=== PATIENT | male | born 1975 | race African-American/Black ===

== ENCOUNTER 2020-12-27 19:26 | Observation (INO) ==
[2020-12-27] MEDS ORDERED: SODIUM CHLORIDE 0.9% 1,000 ML IV STA (20:01)
[2020-12-27 20:08] LABS: Basophils % 0.8 % (0.0-0.8); Eosinophils # 0.9 10*3/uL (0.0-0.87); Eosinophils % 35.2 % (0.00-10.9); Hematocrit 32.4 VOL% (42.0-52.0); Lymphocytes # 0.5 10*3/uL (1.4-4.0); Lymphocytes % 19.4 % (21.2-54.2); Mean Corpuscular Volume 91.3 FL (87-102); Mean Platelet Volume 11.6 FL (9.6-12.0); Neutrophils % 31.6 % (38.7-73.9); Platelet Count 137 T/CUMM (130-400); Red Blood Count 3.55 MC/CUMM (3.8-5.5); Red Cell Distribution Width 12.3 % (9.3-17.3); White Blood Count 2.5 T/CUMM (4-12)
[2020-12-27 20:16] LABS: PT Patient Result 11.4 SECS (10.5-12.0)
[2020-12-27 20:23] LABS: Albumin 3.6 G/DL (3.4-5.0); Bilirubin,Total 0.7 MG/DL (0.20-1.00); Calcium 8.4 MG/DL (8.5-10.1); Potassium 3.8 MMOL/L (3.5-5.1); Total Protein 7.5 G/DL (6.4-8.2)
[2020-12-27 20:33] LABS: Eosinophils 38 % (0-10); Lymphocytes 14 % (20-55); Segmented Neutrophils 41 % (50-85); Total Cells Counted 100
[2020-12-27 20:34] LABS: Atypical Lymphocytes Few; Elliptocytes 1+; Platelet Estimate Adequate; Poikilocytosis 1+; Schistocytes 1+
[2020-12-27 20:36] LABS: Blood, Urine Negative (Negative); Glucose,Urine (UA) Negative (Negative); Ketones,Urine 5 mg/dL (Negative); Mucus,Urine Moderate /LPF (Occasional); Nitrite,Urine Negative (Negative); Protein,Urine Negative; RBC,Urine 1 /HPF (0-4); Squamous Epithelial Cell,Urine Occasional /HPF (0-10); Urine Appearance CLEAR (Clear); Urine Color Yellow (Yellow); Urine Specific Gravity 1.028 (1.001-1.035)
[2020-12-27 20:37] LABS: Barbiturates Screen,Urine Negative (Negative); Benzodiazepines Screen,Urine Negative (Negative); Bilirubin,Urine Small mg/dL (Negative); Cannabinoid Screen,Urine Negative (Negative); Opiate Screen,Urine Negative (Negative); Phencyclidine Screen,Urine Negative (Negative)
[2020-12-27] MEDS ORDERED: ASPIRIN 325 MG TABLET PO STA (21:12)
[2020-12-27] MEDS ORDERED: ZALEPLON 5 MG CAPSULE PO PRN (22:37)
[2020-12-27] MEDS ORDERED: ACETAMINOPHEN 325 MG TABLET PO PRN (22:37)
[2020-12-27] MEDS ORDERED: hydrALAZINE 20 MG/1 ML VIAL IV PRN (22:37)
[2020-12-27] MEDS ORDERED: GLUCAGON 1 MG VIAL IM PRN (22:37)
[2020-12-27] MEDS ORDERED: DEXTROSE 50% 25 GM/50 ML VIAL IV PRN (22:37)
[2020-12-27] MEDS ORDERED: NICOTINE 21 MG/24 HR PATCH TRANSDERM PRN (22:37)
[2020-12-27] MEDS ORDERED: guaiFENesin/DM ER 600-30 MG TABLET PO PRN (22:37)
[2020-12-27] MEDS ORDERED: ONDANSETRON 4 MG/2 ML VIAL IV PRN (22:37)
[2020-12-27] MEDS ORDERED: diphenhydrAMINE CAP 25 MG CAPSULE PO PRN (22:37)
[2020-12-27] MEDS ORDERED: SODIUM CHLORIDE 0.9% 1,000 ML IV SCH (23:00)
[2020-12-28 05:40] LABS: Basophils % 1.5 % (0.0-0.8); Eosinophils # 0.7 10*3/uL (0.0-0.87); Eosinophils % 35.4 % (0.00-10.9); Hematocrit 27.2 VOL% (42.0-52.0); Hemoglobin 9.2 GM/DL (14.0-18.0); Lymphocytes # 0.4 10*3/uL (1.4-4.0); Lymphocytes % 20.7 % (21.2-54.2); Mean Corpuscular HGB Conc 33.8 GM/DL (32-36); Mean Corpuscular Volume 91.9 FL (87-102); Mean Platelet Volume 11.3 FL (9.6-12.0); Monocytes % 12.6 % (1.7-12.7); Neutrophils % 29.8 % (38.7-73.9); Platelet Count 108 T/CUMM (130-400); Red Blood Count 2.96 MC/CUMM (3.8-5.5); Red Cell Distribution Width 12.3 % (9.3-17.3)
[2020-12-28 06:00] LABS: Calcium 6.8 MG/DL (8.5-10.1); Osmolality,Calculated 284.7 MOS/KG (273-304); Potassium 2.9 MMOL/L (3.5-5.1)
[2020-12-28 06:52] LABS: Lymphocytes 18 % (20-55); Segmented Neutrophils 40 % (50-85)
[2020-12-28 06:53] LABS: Eosinophils 27 % (0-10); Platelet Estimate Normal; Total Cells Counted 100
[2020-12-28 06:54] LABS: Hypochromasia Slight
[2020-12-28] MEDS ORDERED: ENOXAPARIN 40 MG/0.4 ML SYRINGE SUBCUT SCH (09:00)
[2020-12-28] MEDS: BISACODYL 5 MG TABLET PO SCH (09:24)
[2020-12-28] MEDS: PANTOPRAZOLE 40 MG TABLET PO SCH (09:25)
[2020-12-28] MEDS ORDERED: POTASSIUM CHLORIDE 20 MEQ TABLET PO ONE ×2 (10:26→11:26)
[2020-12-28] MEDS: ELVITEGRAVIR PO SCH (20:59)
[2020-12-28] MEDS: COBICISTAT PO SCH (20:59)
[2020-12-28] MEDS: TENOFOVIR ALAFENAMIDE PO SCH (20:59)
[2020-12-28] MEDS: EMTRICITABINE PO SCH (20:59)
[2020-12-29 05:49] LABS: Basophils % 0.7 % (0.0-0.8); Eosinophils # 0.9 10*3/uL (0.0-0.87); Eosinophils % 29.4 % (0.00-10.9); Hematocrit 34.1 VOL% (42.0-52.0); Lymphocytes # 0.6 10*3/uL (1.4-4.0); Lymphocytes % 18.4 % (21.2-54.2); Mean Corpuscular HGB Conc 33.4 GM/DL (32-36); Mean Corpuscular Volume 92.4 FL (87-102); Mean Platelet Volume 11.7 FL (9.6-12.0); Monocytes % 13.7 % (1.7-12.7); Neutrophils % 37.8 % (38.7-73.9); Platelet Count 120 T/CUMM (130-400); Red Cell Distribution Width 12.6 % (9.3-17.3)
[2020-12-29 05:55] LABS: Hemoglobin 11.4 GM/DL (14.0-18.0); Red Blood Count 3.69 MC/CUMM (3.8-5.5)
[2020-12-29 06:00] LABS: Calcium 8.5 MG/DL (8.5-10.1); Eosinophils 32 % (0-10); Hypochromasia 1+; Lymphocytes 11 % (20-55); Microcytosis 1+; Ovalocytes Few; Potassium 3.6 MMOL/L (3.5-5.1); Segmented Neutrophils 46 % (50-85); Total Cells Counted 100
[2020-12-29 06:01] LABS: Platelet Estimate Adequate
[2020-12-29 06:09] LABS: Osmolality,Calculated 266.1 MOS/KG (273-304)
[2020-12-29] MEDS ORDERED: POTASSIUM CHLORIDE 20 MEQ TABLET PO ONE (09:39)
[2020-12-29] MEDS: BISACODYL 5 MG TABLET PO SCH (11:27)
[2020-12-29] MEDS: PANTOPRAZOLE 40 MG TABLET PO SCH (11:27)
[2020-12-29] MEDS: SACUBITRIL/VALSARTAN 49-51 MG TABLET PO SCH (21:25)
[2020-12-29] MEDS: COBICISTAT PO SCH (21:26)
[2020-12-29] MEDS: EMTRICITABINE PO SCH (21:26)
[2020-12-29] MEDS: ELVITEGRAVIR PO SCH (21:26)
[2020-12-29] MEDS: TENOFOVIR ALAFENAMIDE PO SCH (21:26)
[2020-12-30 05:38] LABS: Basophils % 0.8 % (0.0-0.8); Eosinophils % 42.1 % (0.00-10.9); Hematocrit 38.2 VOL% (42.0-52.0); Hemoglobin 12.8 GM/DL (14.0-18.0); Immature Granulocytes % 0.4 %; Immature Granulocytes Absolute 0.01 #; Lymphocytes # 0.4 10*3/uL (1.4-4.0); Lymphocytes % 18.2 % (21.2-54.2); Mean Corpuscular HGB Conc 33.5 GM/DL (32-36); Mean Corpuscular Volume 90.3 FL (87-102); Mean Platelet Volume 11.2 FL (9.6-12.0); Monocytes % 11.2 % (1.7-12.7); Neutrophils % 27.3 % (38.7-73.9); Platelet Count 148 T/CUMM (130-400); Red Blood Count 4.23 MC/CUMM (3.8-5.5); Red Cell Distribution Width 12.3 % (9.3-17.3); White Blood Count 2.4 T/CUMM (4-12)
[2020-12-30 06:03] LABS: Risk Ratio 5.31; VLDL Cholesterol 17.4 MG/DL
[2020-12-30 06:04] LABS: Eosinophils 35 % (0-10); Hypochromasia Slight; Lymphocytes 20 % (20-55); Microcytosis Slight; Platelet Estimate Adequate; Segmented Neutrophils 34 % (50-85); Total Cells Counted 100
[2020-12-30 06:10] LABS: Osmolality,Calculated 270.8 MOS/KG (273-304); Potassium 3.6 MMOL/L (3.5-5.1); Thyroid Stimulating Hormone 3.48 uIU/ml (0.358-3.74)
[2020-12-30] MEDS: SACUBITRIL/VALSARTAN 49-51 MG TABLET PO SCH ×2 (08:47→22:08)
[2020-12-30] MEDS: BISACODYL 5 MG TABLET PO SCH (08:48)
[2020-12-30] MEDS: POTASSIUM CHLORIDE 20 MEQ TABLET PO PRN ×2 (08:48→08:50)
[2020-12-30] MEDS: PANTOPRAZOLE 40 MG TABLET PO SCH (08:49)
[2020-12-30] MEDS ORDERED: POTASSIUM CHLORIDE RIDER 10 MEQ/100 ML PREMIX IV PRN (11:25)
[2020-12-30] MEDS ORDERED: MAGNESIUM SULF RIDER 2 GM/50 ML PREMIX IV PRN (11:25)
[2020-12-30] MEDS: TENOFOVIR ALAFENAMIDE PO SCH (22:08)
[2020-12-30] MEDS: ELVITEGRAVIR PO SCH (22:08)
[2020-12-30] MEDS: EMTRICITABINE PO SCH (22:08)
[2020-12-30] MEDS: COBICISTAT PO SCH (22:08)
[2020-12-31] MEDS ORDERED: diphenhydrAMINE CAP 50 MG CAPSULE PO ONE (06:30)
[2020-12-31] MEDS ORDERED: DIAZEPAM 5 MG TABLET PO ONE (06:30)
[2020-12-31] MEDS ORDERED: HEPARIN/NACL 0.9% 2 UNITS/ML 2,000 UNIT/1,000 ML BAG IV ONE (06:36)
[2020-12-31] MEDS ORDERED: LIDOCAINE 1% 20 ML VIAL ONE (06:36)
[2020-12-31 07:09] LABS: Eosinophils # 1.2 10*3/uL (0.0-0.87); Eosinophils % 36.8 % (0.00-10.9); Immature Granulocytes % 0.3 %; Immature Granulocytes Absolute 0.01 #; Lymphocytes # 0.8 10*3/uL (1.4-4.0); Lymphocytes % 25.1 % (21.2-54.2); Mean Corpuscular HGB Conc 33.6 GM/DL (32-36); Mean Corpuscular Volume 91.7 FL (87-102); Mean Platelet Volume 11.7 FL (9.6-12.0); Monocytes % 10.2 % (1.7-12.7); Neutrophils % 26.6 % (38.7-73.9); Red Cell Distribution Width 12.4 % (9.3-17.3)
[2020-12-31] MEDS ORDERED: fentaNYL 100 MCG/2 ML VIAL ONE (07:18)
[2020-12-31] MEDS ORDERED: MIDAZOLAM 2 MG/2 ML VIAL ONE (07:18)
[2020-12-31 07:23] LABS: Hemoglobin 14.8 GM/DL (14.0-18.0); Platelet Count 188 T/CUMM (130-400); White Blood Count 3.2 T/CUMM (4-12)
[2020-12-31 07:36] LABS: Eosinophils 34 % (0-10); Lymphocytes 27 % (20-55); Microcytosis Slight; Ovalocytes Slight; Platelet Estimate Adequate; Segmented Neutrophils 31 % (50-85); Total Cells Counted 100
[2020-12-31 07:47] LABS: Bilirubin,Total 0.8 MG/DL (0.20-1.00); Calcium 8.9 MG/DL (8.5-10.1); Osmolality,Calculated 276.5 MOS/KG (273-304); Potassium 3.7 MMOL/L (3.5-5.1); Total Protein 9.1 G/DL (6.4-8.2)
[2020-12-31] MEDS ORDERED: MORPHINE 2 MG/1 ML SYRINGE IV PRN (08:25)
[2020-12-31] MEDS ORDERED: NITROGLYCERIN SL 0.4 MG TABLET SL PRN (08:25)
[2020-12-31] MEDS ORDERED: ASPIRIN EC 81 MG TABLET PO SCH (09:00)
[2020-12-31 12:54] VITALS: BP 91/65
[2020-12-31 15:17] LABS: % CD4 (T Cells) 1 % (32-64); % CD8 (T Cells) 71 % (13-40); 4/8 Ratio 0 (>=0.9)
== END 2020-12-31 16:24 | disposition home or self-care (01) ==
LOC: EDBD → EDUNIT# → N.EDINP 19:26 → N.ED 19:26 → N.4E 23:36 → N.TELEN 12-30 16:23
PROVIDERS: ADMIT Internal Medicine; ATTEND Internal Medicine
PROC: CLCCHCL (ICD-10-PCS; 2020-12-31 07:45)

== ENCOUNTER 2022-01-17 14:19 | Inpatient (IN) ==
[2022-01-17 16:14] LABS: Hematocrit 31.3 VOL% (42.0-52.0); Immature Granulocytes % 1.1 %; Immature Granulocytes Absolute 0.01 #; Lymphocytes # 0.2 10*3/uL (1.4-4.0); Lymphocytes % 23.2 % (21.2-54.2); Mean Corpuscular HGB Conc 35.1 GM/DL (32-36); Mean Corpuscular Volume 84.8 FL (87-102); Monocytes # 0.1 10*3/uL (0.11-0.8); Monocytes % 8.4 % (1.7-12.7); Neutrophils % 67.3 % (38.7-73.9); Platelet Count 71 T/CUMM (130-400); Red Blood Count 3.69 MC/CUMM (3.8-5.5); Red Cell Distribution Width 12.3 % (9.3-17.3)
[2022-01-17 16:38] LABS: Mucus,Urine Moderate /LPF (Occasional); RBC,Urine 1 /HPF (0-4); Urine Appearance Clear (Clear); Urine Color Yellow (Yellow); Urine pH 5.5 (4.5-8.0)
[2022-01-17 16:39] LABS: Bilirubin,Urine Small mg/dL (Negative); Blood, Urine Trace mg/dL (Negative); Glucose,Urine (UA) Negative (Negative); Ketones,Urine 40 mg/dL (Negative); Nitrite,Urine Negative (Negative); Protein,Urine 100 mg/dL (Negative); Urine Specific Gravity >= 1.030 (1.001-1.035); Urine Urobilinogen 0.2 eU/dL (<2.0)
[2022-01-17 17:09] LABS: Albumin 3.5 G/DL (3.4-5.0); Bilirubin,Total 1.2 MG/DL (0.20-1.00); Calcium 9.2 MG/DL (8.5-10.1); Osmolality,Calculated 248.8 MOS/KG (273-304); Potassium 4.2 MMOL/L (3.5-5.1); Total Protein 9.3 G/DL (6.4-8.2)
[2022-01-17] MEDS ORDERED: DOCUSATE SODIUM 100 MG CAPSULE PO PRN (17:31)
[2022-01-17] MEDS ORDERED: ONDANSETRON 4 MG/2 ML VIAL IV PRN (17:31)
[2022-01-17] MEDS ORDERED: GLUCAGON 1 MG VIAL IM PRN (17:31)
[2022-01-17] MEDS ORDERED: DEXTROSE 10% 250 ML BAG IV PRN (17:45)
[2022-01-17] MEDS: SODIUM CHLORIDE 0.9% 1,000 ML IV SCH (18:12)
[2022-01-17 19:10] LABS: Elliptocytes 1+; Lymphocytes 14 % (20-55); Total Cells Counted 100
[2022-01-17 19:11] LABS: Burr Cells Few; Platelet Estimate Decreased
[2022-01-18] MEDS: ACETAMINOPHEN 325 MG TABLET PO PRN ×3 (00:36→21:08)
[2022-01-18 01:54] LABS: Hematocrit 27.9 VOL% (42.0-52.0); Hemoglobin 9.6 GM/DL (14.0-18.0); Immature Granulocytes % 1.2 %; Immature Granulocytes Absolute 0.01 #; Lymphocytes # 0.2 10*3/uL (1.4-4.0); Lymphocytes % 25.6 % (21.2-54.2); Mean Corpuscular HGB Conc 34.4 GM/DL (32-36); Mean Corpuscular Volume 86.1 FL (87-102); Mean Platelet Volume 13.4 FL (9.6-12.0); Monocytes # 0.1 10*3/uL (0.11-0.8); Monocytes % 8.1 % (1.7-12.7); Neutrophils % 65.1 % (38.7-73.9); Platelet Count 60 T/CUMM (130-400); Red Blood Count 3.24 MC/CUMM (3.8-5.5); Red Cell Distribution Width 12.2 % (9.3-17.3)
[2022-01-18 01:56] LABS: Hematocrit 27.5 VOL% (42.0-52.0); Hemoglobin 9.7 GM/DL (14.0-18.0); Immature Granulocytes % 1.1 %; Immature Granulocytes Absolute 0.01 #; Lymphocytes # 0.2 10*3/uL (1.4-4.0); Lymphocytes % 23.1 % (21.2-54.2); Mean Corpuscular HGB Conc 35.3 GM/DL (32-36); Mean Corpuscular Volume 85.4 FL (87-102); Monocytes # 0.1 10*3/uL (0.11-0.8); Monocytes % 9.9 % (1.7-12.7); Neutrophils % 65.9 % (38.7-73.9); Platelet Count 60 T/CUMM (130-400); Red Blood Count 3.22 MC/CUMM (3.8-5.5); Red Cell Distribution Width 12.1 % (9.3-17.3)
[2022-01-18 02:00] LABS: INR 1.1; PT Patient Result 12.2 SECS (10.1-12.1); Partial Thromboplastin Time 35.6 SECS (23.7-32.9)
[2022-01-18 02:04] LABS: White Blood Count 0.9 T/CUMM (4-12)
[2022-01-18 02:05] LABS: White Blood Count 0.9 T/CUMM (4-12)
[2022-01-18 02:12] LABS: Calcium 8.4 MG/DL (8.5-10.1); Osmolality,Calculated 247.8 MOS/KG (273-304)
[2022-01-18 02:19] LABS: % Iron Saturation 9.2 % (18-50); Ferritin 3029.9 ng/mL (26-388)
[2022-01-18 02:26] LABS: Folate 19.85 NG/ML (5.38-24.0); Vitamin B12 339 PG/ML (211-911)
[2022-01-18 02:43] LABS: Elliptocytes 1+; Eosinophils 1 % (0-10); Lymphocytes 26 % (20-55); Platelet Estimate Decreased; Total Cells Counted 100
[2022-01-18 03:10] LABS: Sedimentation Rate-Westergren 109 MM/HR (0-15)
[2022-01-18] MEDS: MEROPENEM 500 MG in SODIUM CHLORIDE 0.9% 100 ML IV SCH ×4 (03:34→21:08)
[2022-01-18] MEDS: SODIUM CHLORIDE 0.9% 1,000 ML IV SCH ×2 (06:42→23:29)
[2022-01-18 09:41] LABS: Ovalocytes 1+
[2022-01-18 09:42] LABS: Polychromasia Slight; Tear Drop Cells Few
[2022-01-18 09:48] LABS: Lymphocytes 18 % (20-55); Ovalocytes 1+; Polychromasia Slight; Total Cells Counted 100
[2022-01-18 09:49] LABS: Acanthocytes Few; Elliptocytes 1+; Platelet Estimate Decreased; Tear Drop Cells Few
[2022-01-18] MEDS ORDERED: IBUPROFEN 800 MG TABLET PO ONE (23:30)
[2022-01-19] MEDS: MEROPENEM 500 MG in SODIUM CHLORIDE 0.9% 100 ML IV SCH ×4 (04:16→21:19)
[2022-01-19 05:26] LABS: Basophils % 1.1 % (0.0-0.8); Eosinophils % 1.1 % (0.00-10.9); Hematocrit 27.2 VOL% (42.0-52.0); Hemoglobin 9.2 GM/DL (14.0-18.0); Immature Granulocytes % 2.1 %; Immature Granulocytes Absolute 0.02 #; Lymphocytes # 0.4 10*3/uL (1.4-4.0); Lymphocytes % 38.9 % (21.2-54.2); Mean Corpuscular HGB Conc 33.8 GM/DL (32-36); Mean Corpuscular Volume 87.2 FL (87-102); Mean Platelet Volume 12.8 FL (9.6-12.0); Monocytes # 0.2 10*3/uL (0.11-0.8); Monocytes % 18.9 % (1.7-12.7); Neutrophils % 37.9 % (38.7-73.9); Platelet Count 62 T/CUMM (130-400); Red Blood Count 3.12 MC/CUMM (3.8-5.5); Red Cell Distribution Width 12.5 % (9.3-17.3)
[2022-01-19 05:56] LABS: Band Neutrophils 1 % (0-10); Lymphocytes 33 % (20-55); Microcytosis Slight; Nucleated Red Blood Cells 1 /100 WBC (0-5); Total Cells Counted 100
[2022-01-19 05:57] LABS: Ovalocytes 1+
[2022-01-19 05:58] LABS: Burr Cells Slight
[2022-01-19 05:59] LABS: Platelet Estimate Decreased; Tear Drop Cells Slight
[2022-01-19] MEDS ORDERED: IMMUNE GLOBULIN 10% 40 GM in PREMIX 1 EACH IV ONE (09:00)
[2022-01-19] MEDS: SODIUM CHLORIDE 0.9% 1,000 ML IV SCH ×2 (10:10→23:58)
[2022-01-19] MEDS: ACETAMINOPHEN 325 MG TABLET PO PRN (18:40)
[2022-01-20] MEDS: ACETAMINOPHEN 325 MG TABLET PO PRN ×2 (04:05→16:13)
[2022-01-20] MEDS: MEROPENEM 500 MG in SODIUM CHLORIDE 0.9% 100 ML IV SCH ×4 (04:05→21:12)
[2022-01-20 09:35] LABS: Eosinophils % 1.5 % (0.00-10.9); Hemoglobin 8.5 GM/DL (14.0-18.0); Immature Granulocytes % 1.5 %; Immature Granulocytes Absolute 0.01 #; Lymphocytes # 0.2 10*3/uL (1.4-4.0); Lymphocytes % 32.4 % (21.2-54.2); Mean Corpuscular Volume 86.2 FL (87-102); Monocytes # 0.1 10*3/uL (0.11-0.8); Monocytes % 8.8 % (1.7-12.7); Neutrophils % 55.8 % (38.7-73.9); Platelet Count 66 T/CUMM (130-400); Red Cell Distribution Width 12.8 % (9.3-17.3)
[2022-01-20 09:38] LABS: White Blood Count 0.7 T/CUMM (4-12)
[2022-01-20 09:51] LABS: Calcium 8.1 MG/DL (8.5-10.1); Osmolality,Calculated 254.1 MOS/KG (273-304); Potassium 3.7 MMOL/L (3.5-5.1)
[2022-01-20 10:00] LABS: Band Neutrophils 1 % (0-10); Eosinophils 4 % (0-10); Hypochromia 1+; Lymphocytes 31 % (20-55); Microcytosis 1+; Ovalocytes Slight; Platelet Estimate Decreased; Total Cells Counted 100
[2022-01-20] MEDS: SODIUM CHLORIDE 0.9% 1,000 ML IV SCH (10:48)
[2022-01-20 12:51] LABS: % CD4 (T Cells) 0 % (32-64); % CD8 (T Cells) 61 % (13-40); 4/8 Ratio 0 (>=0.9)
[2022-01-20 14:41] LABS: Hb A 95.2 % (95.8-98.0); Hb F 1.8 % (0.0-0.9)
[2022-01-20 16:10] LABS: Hemoglobin A1 (Alkaline) 92.7 % (96.5-98.5); Hemoglobin A2 (Alkaline) 2.8 % (1.5-3.5); Hemoglobin F (Alkaline) 4.5 %
[2022-01-20 16:21] LABS: Parvovirus B19 By Rapid PCR Negative (Negative); Source PLASMA
[2022-01-21] MEDS: SODIUM CHLORIDE 0.9% 1,000 ML IV SCH ×2 (00:24→11:38)
[2022-01-21] MEDS: ACETAMINOPHEN 325 MG TABLET PO PRN ×2 (00:37→11:38)
[2022-01-21] MEDS: MEROPENEM 500 MG in SODIUM CHLORIDE 0.9% 100 ML IV SCH ×4 (05:22→21:20)
[2022-01-21 06:17] LABS: Hematocrit 23.3 VOL% (42.0-52.0); Hemoglobin 8.2 GM/DL (14.0-18.0); Immature Granulocytes Absolute 0.01 #; Lymphocytes # 0.4 10*3/uL (1.4-4.0); Mean Corpuscular HGB Conc 35.2 GM/DL (32-36); Mean Corpuscular Volume 84.1 FL (87-102); Mean Platelet Volume 11.7 FL (9.6-12.0); Monocytes # 0.3 10*3/uL (0.11-0.8); Monocytes % 24.8 % (1.7-12.7); Neutrophils % 34.2 % (38.7-73.9); Platelet Count 64 T/CUMM (130-400); Red Blood Count 2.77 MC/CUMM (3.8-5.5); Red Cell Distribution Width 12.6 % (9.3-17.3); White Blood Count 1.1 T/CUMM (4-12)
[2022-01-21 06:44] LABS: Osmolality,Calculated 254.1 MOS/KG (273-304)
[2022-01-21 06:47] LABS: Hypochromia 1+; Lymphocytes 28 % (20-55); Microcytosis 1+; Ovalocytes Slight; Platelet Estimate Decreased; Total Cells Counted 100
[2022-01-21] MEDS ORDERED: ELVITEGRAVIR PO SCH (21:00)
[2022-01-21] MEDS ORDERED: COBICISTAT PO SCH (21:00)
[2022-01-21] MEDS ORDERED: EMTRICITABINE PO SCH (21:00)
[2022-01-21] MEDS ORDERED: TENOFOVIR ALAFENAMIDE PO SCH (21:00)
[2022-01-22] MEDS: ACETAMINOPHEN 325 MG TABLET PO PRN (00:48)
[2022-01-22] MEDS: SODIUM CHLORIDE 0.9% 1,000 ML IV SCH ×2 (02:31→12:26)
[2022-01-22] MEDS: MEROPENEM 500 MG in SODIUM CHLORIDE 0.9% 100 ML IV SCH ×2 (04:40→09:38)
[2022-01-22 08:26] LABS: Herpesvirus 8 Specimen Source SEE COMMENTS
[2022-01-22 10:54] VITALS: BP 118/74
== END 2022-01-22 11:33 | disposition home or self-care (01) | DRG 977 ==
LOC: N.ED 14:19 → N.EDINP 14:19 → SUATTDRO 17:29 → N.TELEN 23:50
PROVIDERS: ADMIT Family Medicine; ATTEND Internal Medicine Geriatric Medicine